=== PATIENT | female | born 1970 | race Caucasian/White ===

== ENCOUNTER → 2017-06-18 | Outpatient (CLI) | payer OTHER ==
[~2017-06-18] MED LIST: LAMI250T PO; PERC5TAB12 PO; ZOVI200C24 PO
[2017-06-18 07:31] LABS: HEMATOCRIT 39.5 % (35.0-46.0); MEAN CELL VOLUME 87.1 FL (80.0-100.0); MEAN CORPUSCULAR HEMOGLOBIN 29.1 PG (27.0-34.0); MEAN CORPUSCULAR HGB CONC 33.4 % (32.0-36.0); PLATELET COUNT 267 TH/MM3 (150-450); RED BLOOD COUNT 4.53 MIL/MM3 (4.00-5.30); RED CELL DISTRIBUTION WIDTH 13.3 % (11.6-17.2); REVIEW FLAG FINAL; WHITE BLOOD COUNT 4.2 TH/MM3 (4.0-11.0)
[2017-06-18 07:45] LABS: BACTERIA, URINE OCC /hpf; BLOOD, URINE SMALL (NEG); GLUCOSE,URINE NEG (NEG); HYALINE CAST, URINE 1 /lpf (RARE); KETONE, URINE NEG (NEG); MUCUS URINE FEW /lpf (OCC); NITRITE,URINE NEG (NEG); PH, URINE 5.5 (5.0-8.5); SQUAMOUS EPITHELIAL CELL URINE 1 /hpf (0-5); URINE COLOR YELLOW (YELLW/STRAW)
[2017-06-18 08:03] LABS: FOLLICLE STIMULATING HORMONE 46.1 mIU/mL; FREE T4 1.01 NG/DL (0.76-1.46)
== END ==
LOC: CLAB 06:57
PROVIDERS: ATTEND Obstetrics & Gynecology
DX: N39.0 Urinary tract infection, site not specified (principal); N95.1 Menopausal and female climacteric states
CPT/HCPCS: 36415; 81001; 83001; 84439; 84443; 85027; 87086

== ENCOUNTER 2017-12-09 08:35 | Emergency (ER) | payer OTHER ==
[~2017-12-09] VITALS: Ht 157.5 cm; Wt 60.0 kg
[2017-12-09 08:36] VITALS: BP 172/95; PULSE 80; RESP 14; TEMP 98.4; O2SAT 96
[2017-12-09] MEDS ORDERED: IBUPROFEN 800 MG TAB PO ONE (09:30)
[2017-12-09] MEDS ORDERED: PROPARACAINE HCL 0.5% OPHT SOLN 15 ML BTL LEFT EYE ONE (09:30)
--- NOTE | 2017-12-09 09:56 | PD ---
HPI Chief Complaint: Eye Problems/Injury Time Seen by Provider: 09:03 Travel History International Travel<30 days: No Contact w/Intl Traveler<30days: No Traveled to known affect area: No History of Present Illness HPI 47-year-old female presents to the emergency department with complaint of left eye pain after a clamp flicked into her eye within the last hour. She is a [employer] employee. Rates pain 8/10. Says she is having trouble keeping it open secondary to the pain. Reports photosensitivity. Reports clear drainage. Has not taken any medications or tried treatments to alleviate her symptoms. Pain is aggravated with blinking and opening her eye. No known relieving factors. Primary care provider is Dr. Pedersen. No known allergies. Denies significant past medical history. Has no other medical complaints. No other modifying factors or associated signs and symptoms PFSH Past Medical History Cancer: No Cardiovascular Problems: No Diabetes: No Endocrine: No Genitourinary: No Hepatitis: No Hiatal Hernia: No Immune Disorder: No Musculoskeletal: No Neurologic: No Psychiatric: No Reproductive: Yes (CERVICAL DISPLASIA) Respiratory: No Thyroid Disease: No ?: Not Past Surgical History Abdominal Surgery: No AICD: No Body Medical Devices: NONE Cardiac Surgery: No Ear Surgery: No Endocrine Surgery: No Eye Surgery: No Genitourinary Surgery: No Gynecologic Surgery: Yes ( 98', CONE BIOPSY X2) Hysterectomy: Yes Joint Replacement: No Oral Surgery: No Pacemaker: No Thoracic Surgery: No Other Surgery: Yes Social History Alcohol Use: No Tobacco Use: No Substance Use: No Allergies-Medications (Allergen,Severity, Reaction): Coded Allergies: No Known Allergies (Verified , 11/03/13) Reported Meds & Prescriptions Reported Meds & Active Scripts Active Ibuprofen 800 Mg Tab 800 Mg PO Q6HR PRN Tramadol (Tramadol HCl) 50 Mg Tab 50 Mg PO Q4H PRN Erythromycin Opth Oint 5 Mg/Gm Oint 1 Applic LEFT EYE QID 7 Days Review of Systems Except as stated in HPI: all other systems reviewed are Neg Physical Exam Narrative GENERAL: Well-nourished, well-developed female patient, in no acute distress SKIN: Warm and dry. HEAD: Atraumatic. Normocephalic. EYES: Pupils equal and round at 3 mm with brisk reaction. PERRLA. EOMI. Left lid eversion with no foreign body noted. Left eye without scleral erythema and without lid edema. No orbital tenderness, erythema or cellulitis. Left eye with photophobia. No consensual photophobia. No scleral icterus. Clear drainage. Farley lamp exam reveals corneal abrasion at the 9oclock position at the edge of the iris and the sclera. ENT: Mucosa pink and moist. Airway patent. NECK: Trachea midline. CARDIOVASCULAR: Regular rate. RESPIRATORY: No accessory muscle use. GASTROINTESTINAL: Flat. NEUROLOGICAL: Awake and alert. Oriented 3. No obvious cranial nerve deficits. Motor grossly within normal limits. Normal speech. PSYCHIATRIC: Appropriate mood and affect; insight and judgment normal. Data Data Last Documented VS Vital Signs Date Time Temp Pulse Resp B/P (MAP) Pulse Ox O2 Delivery O2 Flow Rate FiO2 12/09/17 08:36 98.4 80 14 172/95 (120) 96 Orders Orders Proparacaine 0.5% Opth Soln (Alcaine 0.5 (12/09/17 09:30) Ibuprofen (Motrin) (12/09/17 09:30) Ed Discharge Order (12/09/17 10:24) [facility] Medical Decision Making Medical Screen Exam Complete: Yes Emergency Medical Condition: Yes Medical Record Reviewed: Yes Differential Diagnosis Corneal abrasion, eye contusion, foreign body Narrative Course 47-year-old female physical exam consistent with left corneal abrasion. Patient is [place] and pulling injury occurred at work. 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 Erythromycin, tramadol, ibuprofen prescribed for home. Instructed patient to follow up with primary care provider. Patient verbalizes understanding and agreement with treatment plan. Patient is medically cleared and stable for discharge. Discussed reasons to return to the emergency department. Patient agrees with treatment plan. The patients vital signs are stable and the patient is stable for outpatient follow-up and treatment. Patient discharged home, stable and in no acute distress. 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 Primary Care Physician Patient Instructions: Corneal Abrasion (ED), General Instructions Departure Forms: Tests/Procedures, Work Release Enter return to work date: Dec 11, 2017 Additional Instructions: Ibuprofen or Tylenol as directed and as needed to reduce pain Erythromycin ointment to the eye as directed Do not patch the eye Do not rub the eye Refrigerated eye drops as needed to reduce pain Cool compresses to the eye as needed to reduce pain Follow-up with ophthalmology Primary care provider Return to the emergency department immediately with worsening of symptoms Med/Other Pt SpecificInfo: No Change to Meds, No Meds Exist/No RX given Scripts Ibuprofen (Ibuprofen) 800 Mg Tab 800 MG PO Q6HR Y for PAIN, #30 TAB 0 Refills Prov: Luba Tate 12/09/17 Tramadol (Tramadol) 50 Mg Tab 50 MG PO Q4H Y for PAIN, #10 TAB 0 Refills Prov: Luba Tate 12/09/17 Erythromycin Opth Oint (Erythromycin Opth Oint) 5 Mg/Gm Oint 1 APPLIC LEFT EYE QID for Infection for 7 Days, #1 TUBE 0 Refills Prov: Luba Tate 12/09/17 Disposition: 01 DISCHARGE HOME Condition: Stable Luba Tate Dec 09, 2017 09:56
[2017-12-09] MEDS ORDERED: ERYTOIN10 LEFT EYE (10:21)
[2017-12-09] MEDS ORDERED: IBUP1TAB7 PO (10:21)
[2017-12-09] MEDS ORDERED: TRAM50TA PO (10:21)
[2017-12-09 10:42] VITALS: BP 142/70
== END 2017-12-09 10:45 | disposition home or self-care (01) ==
LOC: NEPD 08:35
DX: S05.02XA Injury of conjunctiva and corneal abrasion without foreign body, left eye, initial encounter (principal); W22.8XXA Striking against or struck by other objects, initial encounter; Y99.0 Civilian activity done for income or pay
CPT/HCPCS: 99283